=== PATIENT | male | born 1995 | race African-American/Black ===

== ENCOUNTER 2023-10-20 13:15 | Emergency (ER) | payer OTHER ==
[2023-10-20 13:28] VITALS: BP 136/75; PULSE 97; RESP 18; TEMP 98.5; BMI 29.8
[2023-10-20] MEDS ORDERED: CYCLOBENZAPRINE HCL 10 MG TABLET (FP) ONE (13:55)
[2023-10-20] MEDS ORDERED: LIDOCAINE 4% PATCH TP ONE ×2 (13:55→13:59)
[2023-10-20] MEDS ORDERED: IBUPROFEN 400 MG TABLET (FP) PO ONE (13:56)
[2023-10-20] MEDS ORDERED: ACETAMINOPHEN 500 MG TABLET (FP) ONE (13:56)
[2023-10-20] MEDS: ACETAMINOPHEN 500 MG TABLET (FP) PO ONE (13:57)
[2023-10-20] MEDS: CYCLOBENZAPRINE HCL 10 MG TABLET (FP) PO ONE (13:57)
[2023-10-20] MEDS: LIDOCAINE 4% PATCH TP ONE (13:57)
[2023-10-20] MEDS: IBUPROFEN 400 MG TABLET (FP) PO ONE (13:58)
[2023-10-20] MEDS ORDERED: LIDOCAINE PATCH REMOVAL MC SCH (22:00)
== END 2023-10-20 15:25 | disposition home or self-care (01) ==
LOC: JER 13:15 → JERFT 13:15
DX: M25.511 Pain in right shoulder (principal); M25.512 Pain in left shoulder; M54.6 Pain in thoracic spine; V49.50XA Passenger injured in collision with unspecified motor vehicles in traffic accident, initial encounter
CPT/HCPCS: 70450-TC; 72125-TC; 99284-25